=== PATIENT | male | born 1990 | race Caucasian/White ===

== ENCOUNTER 2018-07-19 12:49 | Emergency (ER) | payer OTHER ==
[2018-07-19 13:59] LABS: PLATELET COUNT 227 10^3/uL (150-400)
--- NOTE | 2018-07-19 14:40 | EDPHY ---
HPI/HX/ROS/PE/MDM Narrative: CHIEF COMPLAINT: CP/shortness of breath HISTORY OF PRESENT ILLNESS: This patient is a healthy 27 year old male complaining of chest pain and difficulty breathing. 4 days ago, he developed a dull ache in his chest which is intermittent. Around midday yesterday, the pain became more severe and more frequent. The discomfort generally lasts about 10 seconds. He endorses radiation to his left midaxillary region. He also had some difficulty breathing today. He denies any cough. He cannot identify any palliating or provocative factors. Exertion foes not seem to provoke his symptoms. He endorses history of GERD, but denies similarities of his current symptoms to this. Denies any recent illness. No family history of CAD at a young age. No personal history of hypertension, hyperlipidemia, diabetes. No fever, chills, palpitations, vomiting , diarrhea, urinary complaints, headache, lightheadedness. REVIEW OF SYSTEMS: A comprehensive 10 system review of systems is otherwise negative aside from elements mentioned in the history of present illness and medical decision making. PAST MEDICAL HISTORY: Environmental allergies (daily Zyrtec). SOCIAL HISTORY: Does not abuse tobacco, drugs, or alcohol. VITAL SIGNS: Reviewed by me GENERAL: Well-developed, well-nourished, resting comfortably in no respiratory distress. HEENT: Atraumatic. Eyes: No icterus, no injection. Mouth: moist mucous membranes. No erythema or lesions. Neck: supple with no adenopathy. LUNGS: Clear to auscultation bilaterally, no wheezes, rhonchi or rales. CARDIAC: Regular rate and rhythm, no rubs, murmurs or gallops. ABDOMEN: Soft, nontender, nondistended, bowel sounds normal. BACK: No CVA tenderness. EXTREMITIES: No trauma. No edema. Range of motion is normal throughout. NEURO: Alert and oriented, grossly nonfocal. SKIN: Warm and dry, no rash. PSYCHIATRIC: Normal mentation, no agitation. Portions of this note were transcribed by a medical assistant. I personally performed a history, physical exam, medical decision making, and confirmed accuracy of information the transcribed note. ED Course: 27 year old male presents with four day history of chest pain and shortness of breath. Exam unremarkable. Plan for EKG, chest x-ray, labs including CBC, chemistries, troponin, D-dimer. 12-LEAD EKG: Please see the full report in [facility]. My interpretation: Normal sinus rhythm rate 61. Troponin negative. Labs otherwise unremarkable. Chest x-ray is negative for acute processes. D-dimer is negative. I do not suspect cardiac etiology for the patient's symptoms. Plan to administer DuoNeb and 15mg IV Toradol for symptom relief. Reassessed patient. Discussed imaging and laboratory results. The patient is feeling releived. Plan to discahrge home in good condition. He will follow up with his primary care provider. Return precatuions discussed. He is comfortbale with this plan. MDM: After history and physical examination, the differential for chest pain was considered, including but not limited to, myocardial ischemia, acute coronary syndrome, pulmonary embolus, chest wall pain, pleural inflammation and pulmonary infectious causes. - Data Points Imaging Results: Chest X-Ray 07/19/18 13:29 Impression: Normal chest x-ray. Imaging: I viewed and interpreted images myself Laboratory Results: Laboratory Results 07/19/18 13:45 07/19/18 13:45 Medications Given: Discontinued Medications Albuterol/Ipratropium (Duoneb) 3 ml IH EDNOW ONE Stop: 07/19/18 14:47 Last Admin: 07/19/18 15:02 Dose: 3 ml Ketorolac Tromethamine (Toradol) 15 mg IVP EDNOW ONE Stop: 07/19/18 14:46 Last Admin: 07/19/18 15:02 Dose: 15 mg Point of Care Test Results: Chemistry 07/19/18 13:45 POC Troponin I 0.01 ng/mL ng/mL (0.00-0.08) General Time Seen by Provider: 07/19/18 14:24 Initial Vital Signs: Initial Vital Signs Temperature (C) 37 C 07/19/18 12:57 Heart Rate 67 07/19/18 12:57 Respiratory Rate 16 07/19/18 12:57 Blood Pressure 154/107 H 07/19/18 12:57 O2 Sat (%) 97 07/19/18 12:57 O2 Delivery Mode Room Air Allergies/Adverse Reactions: amoxicillin Allergy (Verified 07/19/18 12:56) Home Medications: Medication Instructions Recorded Albuterol [Proventil Inhaler HFA 1 - 2 puffs IH Q4H #1 mdi 07/19/18 (*)] Zyrtec 07/19/18 Departure - Departure Disposition: Home, Routine, Self-Care Clinical Impression: Chest wall pain, Shortness of breath Condition: Good Instructions: Noncardiac Chest Pain (ED), Shortness of Breath (ED) Additional Instructions: 1. Follow up with your primary care provider in 2-3 days. 2. Return to the emergency department for fever, worsening chest pain or shortness of breath, or other worsening of condition. 3. Please use the albuterol meter dose inhaler 2-4 puffs every 3-4 hours as needed for shortness of breath. 4. Return to the emergency department or seek care urgently if you developed significant chest discomfort with exertion, lightheadedness, dizziness, fainting , palpitations, or other concerns. Referrals: EVA DEVLIN [Other] - As per Instructions Prescriptions: Albuterol [Proventil Inhaler HFA (*)] 1 - 2 puffs IH Q4H #1 mdi Report Scribed for: Danette Betancourt Report Scribed by: Crista Cote Date of Report: 07/19/18 Time of Report: 15:26
[2018-07-19] MEDS ORDERED: KETOROLAC 15 MG/1 ML SDV IVP ONE (14:45)
[2018-07-19] MEDS ORDERED: IPRATROPIUM/ALBUTEROL 3 ML DEYVIAL IH ONE (14:46)
--- NOTE | 2018-07-19 15:37 | CPEKG ---
Test Reason : OPEN Blood Pressure : / mmHG Vent. Rate : 061 BPM Atrial Rate : 062 BPM P-R Int : 144 ms QRS Dur : 082 ms QT Int : 378 ms P-R-T Axes : 078 049 060 degrees QTc Int : 381 ms Sinus rhythm Confirmed by Kaila Cardenas ([id number]) on 07/19/2018 3:36:44 PM Referred By: Confirmed By:Kaila Cardenas
[2018-07-19 16:18] VITALS: BP 154/104
== END 2018-07-19 16:15 | disposition home or self-care (01) ==
DX: R07.89 Other chest pain (principal); R06.02 Shortness of breath
CPT/HCPCS: 84484-PO; 96374; J1885